=== PATIENT | female | born 1950 | race Caucasian/White ===

== ENCOUNTER 2019-05-04 00:46 | Day surgery (SDC) | payer MEDICARE, BC, SELFPAY ==
[2019-04-28 13:12] VITALS: BMI 26.4
[2019-05-04 08:21] VITALS: BP 126/104; PULSE 54; RESP 16; TEMP 36.6; O2SAT 97
[2019-05-04] MEDS: LACTATED RINGERS 1,000 ML 150 ML IV CONT (08:23)
--- NOTE | 2019-05-04 08:38 | P.CONGI_ITS ---
Assessment and Plan Additional Plan This is a 68-year-old white female patient seen in evaluation at the request of Dr. Marks. Patient presents for colonoscopy. Patient has had colon polyps in the past by previous endoscopy. At the present time patient states her weight appetite bowel movements are normal. She denies any blood in her stools. She denies any abdominal pain. Her bowel habits are regular. Family history is noncontributory. Past medical history noncontributory. Current medications include aspirin. Restasis eyedrops. Aspirin. She has an allergy to codeine. Physical exam reveals her to be alert. Vital signs stable. HEENT exam unremarkable. Lungs are clear to auscultation and percussion. Heart is without murmur or extra sounds. Abdominal exam bowel sounds are present soft nontender with no hepatosplenomegaly. Digital external rectal exam normal. Impression 1. Personal history of colon polyps. Plan is for surveillance colonoscopy at this time. Further recommendations after endoscopy. GI Consult Note Consult date/time: 05/04/19 08:38 HPI: Gabby Gong is a 68 year old female [facility] Family History Family History (Updated 06/27/16 @ 23:56 by DOCTOR UNKNOWN) Sibling Hypertension Family history of malignant neoplasm Father Family history of liver disease, Onset Age: 42 Patient's father is Mother Family history of malignant neoplasm of breast in first d egree relative, Onset Age: 69 Family history of malignant neoplasm of ovary Patient's mother is Social History Social History Smoking status: Never smoker Alcohol intake: current Meds Home Medications and Allergies Home Medications Medication Instructions Recorded Confirmed Type aspirin 81 mg PO DAILY 04/28/19 04/28/19 History calcium carbonate [Calcium 500] 500 mg PO DAILY 04/28/19 04/28/19 History cholecalciferol (vitamin D3) 10 mcg PO DAILY 04/28/19 04/28/19 History [Vitamin D3] cyclosporine [Restasis] 1 drp OPHTHALMIC (EYE) DAILY 04/28/19 04/28/19 History dorzolamide 1 drp OPHTHALMIC (EYE) DAILY 04/28/19 04/28/19 History latanoprost 1 drp OPHTHALMIC (EYE) DAILY 04/28/19 04/28/19 History omega 3-dyu-ovo-fish oil [Fish Oil] 1 cap PO DAILY 04/28/19 04/28/19 History Allergies Allergy/AdvReac Type Severity Reaction Status Date / Time codeine AdvReac Mild Nausea and Verified 04/28/19 13:20 Vomiting Vital Signs Vital Signs - 24 hr 05/04/19 08:21 Temperature 36.6 C Pulse Rate 54 L Respiratory Rate 16 Blood Pressure 126/104 H Pulse Oximetry 97
[2019-05-04 09:33] VITALS: BP 109/53; PULSE 60; RESP 16; O2SAT 100
[2019-05-04 09:43] VITALS: BP 131/61; PULSE 54; RESP 17; O2SAT 100
[2019-05-04 09:53] VITALS: BP 135/74; PULSE 53; RESP 18; O2SAT 100
== END 2019-05-04 10:19 | disposition home or self-care (01) ==
PROVIDERS: PCP Internal Medicine; Visit Provider Internal Medicine Gastroenterology
PROC: 0DJD8ZZ Inspection of Lower Intestinal Tract, Via Natural or Artificial Opening Endoscopic (ICD-10-PCS; CPT 45378; principal; 2019-05-04 09:00)
DX: Z12.11 Encounter for screening for malignant neoplasm of colon (principal); K63.5 Polyp of colon; K64.8 Other hemorrhoids; Z79.82 Long term (current) use of aspirin
CPT/HCPCS: 45385; 88305; J2704; J7120

== ENCOUNTER → 2020-01-25 17:42 | Outpatient (CLI) | payer MEDICARE, BC, SELFPAY ==
--- NOTE | ~2020-01-25 | MM_ITS ---
EXAMINATION: MM screening marika BI w raymundo HISTORY: Screening TECHNIQUE: Craniocaudal and mediolateral oblique 3-D tomosynthesis images were obtained and synthetic 2-D images were generated. CAD analysis was submitted and interpreted. COMPARISON: Comparison to multiple prior studies sequentially, with oldest reviewed study dated 10/02. BREAST PARENCHYMAL COMPOSITION: There are scattered areas of fibroglandular density. FINDINGS: There is no evidence of suspicious mass, calcification, or architectural distortion to sugg est malignancy in either breast. There has been no suspicious interval change. IMPRESSION: 1. No mammographic evidence of malignancy. 2. Recommend routine screening mammography in one year. BI-RADS Category 1: Negative Reviewed, dictated and finalized at location A. ICAL INSTRUMENT REPAIR SPECIALIST
== END ==
PROVIDERS: PCP Nurse Practitioner; Visit Provider Nurse Practitioner Obstetrics & Gynecology
DX: Z12.31 Encounter for screening mammogram for malignant neoplasm of breast (principal)
CPT/HCPCS: 77063; 77067

== ENCOUNTER → 2020-03-29 10:10 | Outpatient (CLI) | payer MEDICARE, BC, SELFPAY ==
--- NOTE | ~2020-03-29 | DEXA_ITS ---
Bone Density Report Name: Gabby Gong Age: 69 Sex: Female Ethnicity: White Date of : 1950 Indication: osteopenia; hysterectomy; postmenopausal Referring Provider: Sanjuanita Fisher Study: Bone densitometry was performed. Exam Date: March 29, 2020 Accession number: [id number] Bone Density: Region BMD T-score Z-score Classification AP Spine (L1-L4) 0.918 -1.2 0.8 Osteopenia Femoral Neck (Left) 0.737 -1.0 0.6 Normal Total Hip (Left) 1.009 0.6 1.9 Normal Femoral Neck (Right) 0.769 -0.7 0.9 Normal Total Hip (Right) 0.963 0.2 1.5 Normal Total Hip Mean 0.986 0.4 1.7 Normal World Health Organization criteria for BMD impression classify patients as: Normal (T-score at or above -1.0), Osteopenia (T-score between -1.0 and -2.5), or Osteoporosis (T-score at or below -2.5). 10-year Fracture Risk(1): Major Osteoporotic Fracture 8.4% Hip Fracture 0.7% Reported Risk Factors: [place] (), Neck BMD=0.737, BMI=24.4 (1) FRAX(R) Version 3.08. Fracture probability calculated for an untreated patient. Fracture probability may be lower if the patient has received treatment. Previous Exams: Region Exam Age BMD T-score BMD Change BMD Change Date g/cm2 vs Baseline vs Previous AP Spine(L1-L4) 03/29/2020 69 0.918 -1.2 -0.023* 0.007 01/08/2018 67 0.911 -1.2 -0.030* -0.008 01/10/2015 64 0.919 -1.2 -0.022 -0.028* 08/20/2011 60 0.947 -0.9 0.006 -0.014 11/24/2008 58 0.962 -0.8 0.021 0.021 05/13/2005 54 0.941 -1.0 Total Hip(Left) 03/29/2020 69 1.009 0.6 -0.031* -0.032* 01/08/2018 67 1.042 0.8 0.002 0.002 01/10/2015 64 1.040 0.8 0.000 -0.022 08/20/2011 60 1.062 1.0 0.022 0.078* 11/24/2008 58 0.984 0.3 -0.056* -0.056* 05/13/2005 54 1.040 0.8 Total Hip(Right) 03/29/2020 69 0.963 0.2 0.019 0.001 01/08/2018 67 0.963 0.2 0.018 -0.011 01/10/2015 64 0.974 0.3 0.029* 0.007 08/20/2011 60 0.967 0.2 0.022 0.010 11/24/2008 58 0.957 0.1 0.012 0.012 05/13/2005 54 0.945 0.0 *Denotes significance at 95% confidence level, LSC for AP Spine = 0.022 g/cm2, LSC for Total Hip = 0.027 g/cm2 Clinical Information Provided by Patient: Has used t
== END ==
PROVIDERS: PCP Internal Medicine; Visit Provider Nurse Practitioner
DX: Z78.0 Asymptomatic menopausal state (principal); M85.88 Other specified disorders of bone density and structure, other site
CPT/HCPCS: 77080

== ENCOUNTER 2020-11-01 09:44 | Outpatient (CLI) | payer MEDICARE, BC, SELFPAY ==
--- NOTE | ~2020-11-01 | XR_ITS ---
EXAMINATION: XR chest 2V DATE: 11/01/2020 11:13 INDICATION: Dyspnea. TECHNIQUE: Frontal and lateral views of the chest were obtained. COMPARISON: Chest 2 views 08/28/2005 FINDINGS: The chest demonstrates clear lungs without pneumonia, pleural effusion, or pneumothorax. Th e heart size is normal. IMPRESSION: 1. No acute cardiopulmonary disease. Reviewed, dictated and finalized at location A.
--- NOTE | 2020-11-01 10:09 | EST_ITS ---
Patient Info Name: Gabby Gong Age: 69 years : 1950 Gender: Female Ht: 65 in Wt: 152 lbs BSA: 1.79 m2 Technical Quality: Good Exam Date: 11/01/2020 10:37 AM Exam Location: [facility] Patient Status: Outpatient Admit Date: 11/01/2020 Staff Ordering Physician: Clarke Marks DO Freelance Programmer/App Developer: Sherly Rosenbaum RDCS Attending Provider: Clarke Marks DO Referring Physician: Kendrick WINSLOW; Exercise Technologist: Sherly Rosenbaum RDCS Exercise Physician: Fredrick Yu DO Exam Type: CA stress echo Study Info Indications R06.00 - Dyspnea, unspecified Treadmill exercise stress echocardiogram is performed. Summary 1. 1. Negative Charbel exercise stress test for ischemic ST changes by ECG criteria. 2. 2. Good functional capacity, achieving 9.8 METs of workload. 3. 3. Baseline hypertension with hypertensive response to exercise. 4. 4. Appropriate HR response to exercise. 5. 5. Appropriate HR recovery at 1 minute post exercise. 6. 6. Negative stress echocardiogram for ischemia by wall motion analysis. 7. 7. Patient informed of the above results. Stress Echo Findings Left Ventricle Appropriate increase in LV endocardial thickening with systole. Appropriate augmentation of contractility with systole. No wall motion abnormality. Left Ventricle Normal LV systolic function, no wall motion abnormality. Protocol: Charbel Stress ECG Details Stage: REST Duration (min): 8 min : 10 sec Speed (mph): 0.0 Grade (%): 0 HR (bpm): 51 SBP (mmHg): 146 DBP (mmHg): 74 METS: --- Stage: REST Duration (min): 18 min : 31 sec Speed (mph): 0.0 Grade (%): 0 HR (bpm): 80 SBP (mmHg): 146 DBP (mmHg): 74 METS: --- Stage: STAGE 1 Duration (min): 1 min : 0 sec Speed (mph): 1.7 Grade (%): 10 HR (bpm): 85 SBP (mmHg): 146 DBP (mmHg): 74 METS: --- Stage: STAGE 1 Duration (min): 2 min : 0 sec Speed (mph): 1.7 Grade (%): 10 HR (bpm): 95 SBP (mmHg): 146 DBP (mmHg): 74 METS: --- Stage: STAGE 1 Duration (min): 3 min : 0 sec Speed (mph): 1.7 Grade (%): 10 HR (bpm): 98 SBP (mmHg): 204 DBP (mmHg): 77 METS: --- Stage: STAGE 2 Duration (min): 1 min : 0 sec Speed (mph): 2.5 Grade (%): 12 HR (bpm): 110 SBP (mmHg): 204 DBP (mmHg): 77 METS: --- Stage: STAGE 2 Duration (min): 2 min : 0 sec Speed (mph): 2.5 Grade (%): 12 HR (bpm): 120 SBP (mmHg): 212 DBP (mmHg): 85 METS: --- Stage: STAGE 2 Duration (min): 3 min : 0 sec Speed (mph): 2.5 Grade (%): 12 HR (bpm): 122 SBP (mmHg): 212 DBP (mmHg): 85 METS: --- Stage: STAGE 3 Duration (min): 1 min : 0 sec Speed (mph): 3.4 Grade (%): 14 HR (bpm): 137 SBP (mmHg): 218 DBP (mmHg): 98 METS: --- Stage: STAGE 3 Duration (min): 1 min : 35 sec Speed (mph): 0.0 Grade (%): 0 HR (bpm): 144 SBP (mmHg): 218 DBP (mmHg): 98 METS: ---
== END 2020-11-01 09:45 | disposition home or self-care (01) ==
PROVIDERS: PCP Internal Medicine; Visit Provider Internal Medicine
DX: R06.00 Dyspnea, unspecified (principal)
CPT/HCPCS: 71046; 93351

== ENCOUNTER → 2021-04-01 15:46 | Outpatient (CLI) | payer MEDICARE, BC, SELFPAY ==
--- NOTE | ~2021-04-01 | MM_ITS ---
EXAMINATION: MM screening marika BI w raymundo HISTORY: Screening TECHNIQUE: Craniocaudal and mediolateral oblique 3-D tomosynthesis images were obtained and synthetic 2-D images were generated. CAD analysis was submitted and interpreted. COMPARISON: Comparison to multiple prior studies sequentially, with oldest reviewed study dated 10/07. BREAST PARENCHYMAL COMPOSITION: There are scattered areas of fibroglandular density. FINDINGS: There is no evidence of suspicious mass, calcification, or architectural distortion to sugg est malignancy in either breast. There has been no suspicious interval change. IMPRESSION: 1. No mammographic evidence of malignancy. 2. Recommend routine screening mammography in one year. BI-RADS Category 1: Negative Reviewed, dictated and finalized at location A. K MECHANIC APPRENTICE
== END ==
PROVIDERS: PCP Internal Medicine; Visit Provider Nurse Practitioner Obstetrics & Gynecology
DX: Z12.31 Encounter for screening mammogram for malignant neoplasm of breast (principal)
CPT/HCPCS: 77063; 77067

== ENCOUNTER → 2022-06-12 09:49 | Outpatient (CLI) | payer MEDICARE, BC, SELFPAY ==
--- NOTE | ~2022-06-12 | MM_ITS ---
EXAMINATION: MM screening marika BI w raymundo HISTORY: Screening TECHNIQUE: Craniocaudal and mediolateral oblique 3-D tomosynthesis images were obtained and synthetic 2-D images were generated. CAD analysis was submitted and interpreted. COMPARISON: Comparison to multiple prior studies sequentially, with oldest reviewed study dated 10/07. BREAST PARENCHYMAL COMPOSITION: There are scattered areas of fibroglandular density. FINDINGS: There is no evidence of suspicious mass, calcification, or architectural distortion to sugg est malignancy in either breast. There has been no suspicious interval change. IMPRESSION: 1. No mammographic evidence of malignancy. 2. Recommend routine screening mammography in one year. BI-RADS Category 1: Negative Reviewed, dictated and finalized at location A.
--- NOTE | ~2022-06-12 | DEXA_ITS ---
Bone Density Report Name: TORI PHILIP Age: 71 Sex: Female Ethnicity: White Date of : 1950 Indication: osteopenia; hysterectomy; postmenopausal Referring Provider: RENATO LOBATO Study: Bone densitometry was performed. Exam Date: June 12, 2022 Accession number: [id number] Bone Density: Region BMD T-score Z-score Classification AP Spine (L1-L4) 0.930 -1.1 1.0 Osteopenia Femoral Neck (Left) 0.787 -0.6 1.2 Normal Total Hip (Left) 0.974 0.3 1.7 Normal Femoral Neck (Right) 0.715 -1.2 0.6 Osteopenia Total Hip (Right) 0.956 0.1 1.6 Normal Total Hip Mean 0.965 0.2 1.7 Normal World Health Organization criteria for BMD impression classify patients as: Normal (T-score at or above -1.0), Osteopenia (T-score between -1.0 and -2.5), or Osteoporosis (T-score at or below -2.5). 10-year Fracture Risk(1): Major Osteoporotic Fracture 9.3% Hip Fracture 1.1% Reported Risk Factors: [place] (), Neck BMD=0.715, BMI=25.2 (1) FRAX(R) Version 3.08. Fracture probability calculated for an untreated patient. Fracture probability may be lower if the patient has received treatment. Previous Exams: Region Exam Age BMD T-score BMD Change BMD Change Date g/cm2 vs Baseline vs Previous AP Spine(L1-L4) 06/12/2022 71 0.930 -1.1 -0.011 0.012 03/29/2020 69 0.918 -1.2 -0.023* 0.007 01/08/2018 67 0.911 -1.2 -0.030* -0.008 01/10/2015 64 0.919 -1.2 -0.022 -0.028* 08/20/2011 60 0.947 -0.9 0.006 -0.014 11/24/2008 58 0.962 -0.8 0.021 0.021 05/13/2005 54 0.941 -1.0 Total Hip(Left) 06/12/2022 71 0.974 0.3 -0.066* -0.036* 03/29/2020 69 1.009 0.6 -0.031* -0.032* 01/08/2018 67 1.042 0.8 0.002 0.002 01/10/2015 64 1.040 0.8 0.000 -0.022 08/20/2011 60 1.062 1.0 0.022 0.078* 11/24/2008 58 0.984 0.3 -0.056* -0.056* 05/13/2005 54 1.040 0.8 Total Hip(Right) 06/12/2022 71 0.956 0.1 0.012 -0.007 03/29/2020 69 0.963 0.2 0.019 0.001 01/08/2018 67 0.963 0.2 0.018 -0.011 01/10/2015 64 0.974 0.3 0.029* 0.007 08/20/2011 60 0.967 0.2 0.022 0.010 11/24/2008 58 0.957 0.1 0.012 0.012 05/13/2005 54 0.945 0.0 *Denotes significance at 95% confidence l
== END ==
PROVIDERS: PCP Internal Medicine; Visit Provider Internal Medicine
DX: Z12.31 Encounter for screening mammogram for malignant neoplasm of breast (principal); M85.88 Other specified disorders of bone density and structure, other site; M85.852 Other specified disorders of bone density and structure, left thigh
CPT/HCPCS: 77063; 77067; 77080

== ENCOUNTER 2023-07-24 13:21 | Outpatient (CLI) | payer MEDICARE, BC, SELFPAY ==
--- NOTE | ~2023-07-24 | MM_ITS ---
EXAMINATION: MM screening marika BI w raymundo HISTORY: Screening mammogram TECHNIQUE: Craniocaudal and mediolateral oblique 3-D tomosynthesis images were obtained and synthetic 2-D images were generated. CAD analysis was submitted and interpreted. COMPARISON: 06/12/2022, 04/01/2021 bilateral screening mammogram examinations BREAST PARENCHYMAL COMPOSITION: There are scattered areas of fibroglandular density. FINDINGS: There is no evidence of suspicious mass, calcification, or architectural distortion to sugg est malignancy in either breast. There has been no suspicious interval change. IMPRESSION: 1. No mammographic evidence of malignancy. 2. Recommend routine screening mammography in one year. BI-RADS Category 1: Negative Reviewed, dictated and finalized at location A.
== END 2023-07-24 13:22 ==
LOC: MICIMG 13:22
PROVIDERS: PCP Nurse Practitioner Family; Visit Provider Nurse Practitioner Family
DX: Z12.31 Encounter for screening mammogram for malignant neoplasm of breast (principal)
CPT/HCPCS: 77063; 77067

== ENCOUNTER 2024-10-04 13:30 | Outpatient (RCR) | payer MEDICARE, BC, SELFPAY ==
--- NOTE | 2024-08-26 09:56 | OPREHPOC ---
Outpatient Therapy Plan of Care This is a Multidisciplinary Plan of Care that may contain components documented by all disciplines (PT, OT, and ST.) PT Problem 1 PT Problem #1 Knowledge Deficit PT Goal 1 Goal / Goal Update 1. Patient will perform independent HEP 2. Patient will verbalize urge suppression techniques Target Visit 2 PT Problem 2 PT Problem #2 Impaired Strength PT Goal 1 Goal / Goal Update 1. Improve pelvic floor strength to 5/5 to reduce incontinence 2. Improve pelvic floor endurance to 10 seconds to reduce incontinence 3. Patient able to perform 5 quick flicks as urge suppression technique Target Visit 4 PT Problem 3 PT Problem #3 Impaired Functional ADLs PT Goal 1 Goal / Goal Update 1. Patient will void no more than 1 time at night 2. Patient will void no more than 1 time before going to bed 3. Patient will void no more than 8 times total during her waking hours 4. Patient will report ability to hold urge at least 30 minutes Target Visit 4
--- NOTE | 2024-08-26 09:56 | PTOPEVAL1 ---
Assessment and note entered by Lynsey Santana DPT Evaluation Information Assessment Status Evaluation Diagnosis r35.0 ICD-10 Condition Codes (PT) Weakness R53.1,Urge incontinence N39.41 Subjective Information Pt reports nocturia. Typically voiding 2 times at night. If she does not fall asleep right away she will need to void again within minutes and this can happen until she falls asleep. Voiding 6-7 times a day. Urge incontinence (very small volume) occurs less than monthly only if holding too long . Denies pain with urination. Can hold urge to void 5-10 minutes. BM usually once a day, no pain. Overall denies pelvic pain, some discomfort due to dryness from menopause. Pt has never been . Complete hysterectomy. No b/b history. Patient goal: get rid of voiding at night and right before bed Returns for wellness exam in 6 months. Reported Pain Level Pain Score 0: Self Report Assessment PT Clinical Summary The patient is presenting to skilled therapy with a history of increased urinary frequency, urgency, and infrequent urge incontinence. She presents with decreased hip and abdominal strength, as well as decreased pelvic floor strength and endurance. She will highly benefit from therapy to address strength as well as for education and training in urge suppression techniques to reduce frequency, urgency, and incontinence to return to full function. Plan of Care Interventions Manual Therapy,Neuro Re-education,Patient/ Caregiver Education,Therapeutic Activities, Therapeutic Exercise PT Services Indicated Yes Treatment Frequency and 1 visit every other week x 4 visits Duration These treatments will address the objective and functional deficits as defined above. The patient will be advanced safely and appropriately in order for the patient to progress towards his/her prior level of function. Additional exercises will be introduced and as well as a comprehensive home exercise program upon discharge, if needed, ?to ensure carryover of functional gains achieved in the clinic. This treatment plan has been reviewed and agreement upon by the patient.
--- NOTE | 2024-10-12 14:43 | PTOPDC ---
Assessment and note entered by Lynsey Santana DPT Evaluation Information Assessment Status Discharge - Pt Not Present Diagnosis r35.0 ICD-10 Condition Codes (PT) Weakness R53.1,Urge incontinence N39.41 Subjective Information - Assessment PT Clinical Summary Patient is self discharging at this time as she reports her symptoms have improved. Her case will be discharged this date. Plan of Care PT Services Indicated No
== END 2024-10-12 16:40 | disposition home or self-care (01) ==
LOC: ANHPT 13:30
PROVIDERS: PCP Nurse Practitioner Family; Visit Provider Nurse Practitioner
DX: R35.0 Frequency of micturition (principal)
CPT/HCPCS: 97110; 97112; 97161; 97530

== ENCOUNTER 2024-10-21 13:18 | Outpatient (CLI) | payer MEDICARE, BC, SELFPAY ==
--- OUTSIDE RECORDS SUMMARY | 2024-10-21 13:21 | XMS_ITS | Referral Summary ---
Author Organization [facility] Address [address] [place] [address] Care Team Providers Care Gear Cutting Machine Set Up Operator Name Role Phone Salbador Haynes MD Primary Care Provider [phone] Encounters Date Type Department Care Team Description 09/21/2024 11:00 AM CDT Office Visit [facility] Cardiology [address] [place] [address] Torin Doshi MD Chest pain, unspecified type (Primary Dx) from Last 3 Months Allergies Active Allergy Reactions Criticality Noted Date Comments Codeine Nausea & Vomiting Low 09/21/2024 Medications latanoprost (XALATAN) 0.005 % ophthalmic solution 1 drop nightly 5 Active cycloSPORINE (RESTASIS) 0.05 % ophthalmic emulsion INSTILL ONE DROP INTO BOTH EYES TWICE A DAY 5 Active dorzolamide (TRUSOPT) 2 % ophthalmic solution INSTILL ONE DROP INTO THE RIGHT EYE TWICE A DAY 5 Active perfluorohexylo ctane, PF, (Miebo, PF,) 100 % drops Administer into affected eye(s) Active calcium carbonate (CALCIUM 600 ORAL) Take by mouth daily Active omega-3 fatty acids-fish oil 300-1,000 mg capsule Take 2 capsules (2 g total) by mouth daily Active eszopiclone (LUNESTA) 2 mg tabletIndicatio ns:Insomnia Take 1 tablet (2 mg total) by mouth nightly as needed for sleep Active lisinopriL (PRINIVIL,ZESTR IL) 10 mg tablet Take 1 tablet (10 mg total) by mouth daily 30 tablet 11 07/2210/12/19 26 Active Active Problems No known active problems Social History Tobacco Use Types Packs/Day Years Used Date Smoking Tobacco: Former Cigarettes 1 997 - 1969 Smokeless Tobacco: Never Tobacco Cessation:Counseling Given: Not Answered Comments Unknown Sex and Gender Information Value Date Recorded Sex Assigned at Not on file 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 Gender Identity Not on file Sexual Orientation Not on file Last Filed Vital Signs Vital Sign Reading Time Taken Comments Blood Pressure 132/68 09/21/2024 11:01 AM CDT Pulse 55 09/21/2024 11:01 AM CDT Temperature - - Respiratory Rate - - Oxygen Saturation 98% 09/21/2024 11:01 AM CDT Inhaled Oxygen Concentration - - Weight 68 kg (150 lb) 09/21/2024 11:01 AM CDT Height 165.1 cm (5' 5) 09/21/2024 11:01 AM CDT Body Mass Index 24.96 09/21/2024 11:01 AM CDT Plan of Treatment Not on file Insurance MEDICARE [facility] Care Teams Gear Cutting Machine Set Up Operator Relationship Specialty Start Date End Date Salbador Haynes MD [address] [place] [address] PCP - General Family Practice 07/08/24
--- OUTSIDE RECORDS SUMMARY | 2024-10-21 13:21 | XMS_ITS | Clinical Summary ---
Author Organization [facility] Address [address] [place] [address] Care Team Providers Care Fiberglass Boat Builder Name Role Phone Unavailable Primary Care Provider Unavailabl e Source Comments [facility],non-owned Affiliates and Associated Physician Practices is amultiple site organization consisting of ambulatory clinics and hospital sitesin [place], [place], [place] and [place]. This disclosure is being madepursuant to the Care Everywhere program and may not contain all information available regarding this patient. 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 Gender Identity Not on file Sexual Orientation Not on file Plan of Treatment Health Maintenance Due Date Last Done Comments BONE DENSITY TESTING 1950 COLOGUARD (AGES 45-75) - COL ON CA SCREENING 1950 COLON MONITORING 1950 COLONOSCOPY - COLON CA SCREENING 1950 CT COLONOGRAPHY - COLON CA SCREENING 1950 Colorectal Cancer Screening 1950 FIT - COLON CA SCREENING 1950 FLEX SIG - COLON CA SCREENING 1950 LIPID TESTING 1950 MAMMOGRAM 1950 MEDICARE AWV 12 MONTHS 1950 HEPATITIS C SCREENING 11/07/1970 DTAP/TDAP/TD VACCINES (1 - Tdap) 11/12/1971 PNEUMOCOCCAL VACCINE 50+ (1 of 1 - PCV) 2002 ZOSTER VACCINE (1 of 2) 2002 COVID-19 VACCINE ( - 2023-2 5 season) 2023 DEPRESSION SCREENING 03/23/2024 INFLUENZA VACCINE (#1) 2024 Respiratory Syncytial Virus (RSV) Vaccine Pt: or over 60 yrs (1 - 1-dose 75+ series) 11/12/2027 HEPATITIS B VACCINE Aged Out No longe r eligible based on patient's age to complete this topic HIB VACCINE Aged Out No longer eligi ble based on patient's age to complete this topic HPV VACCINE Aged Out No longer eligi ble based on patient's age to complete this topic MENINGOCOCCAL (Group B) VACC INE SHARED DECISION-MAKING Aged Out No longer eligibl e based on patient's age to complete this topic MENINGOCOCCAL GROUPS A/C/Y/W VACCINE Aged Out No longer eligible b ased on patient's age to complete [place] [address] MEDICARE [facility]
--- OUTSIDE RECORDS SUMMARY | 2024-10-21 13:21 | XMS_ITS | Encounter Summary ---
Author Organization [facility] Address [address] [place] [address] Care Team Providers Care Trust Vault Custodian Name Role Phone Unavailable Primary Care Provider Unavailabl e Encounter Details Date Type Department Care Team (Late st Contact Info) Description 12/23/2018 Lab Requisition [facility] [address] [place] [id number] Jaky Mora MD [address] [facility] [address] [place] [address] Social History Tobacco Use Types Packs/Day Years Used Date Smoking Tobacco: Never Assessed Comments Unknown Sex and Gender Information Value Date Recorded Sex Assigned at Not on file 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 Gender Identity Not on file Sexual Orientation Not on file documented as of this encounter Plan of Treatment Not on file documented as of this encounter Procedures Procedure Name Priority Date/Time Associated Diagnosis Comments DERMATOPATHOLOGY Routine 12/22/2018 12:0 0 AM CDT documented in this encounter Results * DERMATOPATHOLOGY (12/22/2018 12:00 AM CDT) Case Report Dermatopathology Report Case: [id number] Authorizing Provider: Jaky Mora MD Collected: 12/22/2018 12:00 AM Ordering Location: [facility] Received: 12/23/2018 08:11 AM Pathologist: Juan Huynh MD Specimen: Skin, left forearm 9 2:38 PM CDT DERMATOPATHOLOGY LABORATORY Final Diagnosis Specimen A. SKIN, left forearm: SUPERFICIAL AND DEEP PERIVASCULAR LYMPHOCYTIC INFILTRATE WITH EOSINOPHILS (T63.484A) (see microscopic description and comment) 9 2:38 PM CDT DERMATOPATHOLOGY LABORATORY at 1438 CDT Clinical History ACD vs CTD vs PSO vs tinea vs fixed drug. [place] edematous scaly plaques AL forearm and neck. 2:38 PM CDT DERMATOPATHOLOGY LABORATORY Gross Description Specimen A: Received is one formalin filled container labeled with the patient's name and designated left forearm. The specimen consists of a punch measuring [id number], bisected. Jar 0. 2:38 PM CDT DERMATOPATHOLOGY LABORATORY Microscopic Description Specimen A. SKIN, left forearm: There is a superficial and deep, wedge-shaped, perivascular and interstitial infiltrate of lymphocytes with eosinophils. The epidermis is focally necrotic and covered with a scale-crust, with underlying keratinocyte dysmaturation. Grocott's methenamine silver (GMS) stain fails to highlight fungal elements in the available sections. Additional deeper sections were obtained and reviewed. COMMENT: The histologic differential diagnosis includes an arthropod bite reaction, a dermal contact dermatitis, and a drug reaction. 2:38 PM CDT DERMATOPATHOLOGY LABORATORY Disclaimer An external and internal positive and negative controls are appropriate for the histochemical, immunohistochemical and immunofluorescence stain(s) in this case (if any), except where stated explicitly. The performance characteristics of the stain(s) cited in this report were developed and its performance characteristic determined by the Dermatopathology Laboratory at [facility], directed by Dr. Sarah Huynh. These tests need not be, and therefore are not, approved by the [place] Food and Drug Administration. The tests are used for clinical purposes. Billing Codes Specimen Charges Stain Charges 23827 1 36485 1 2:38 PM CDT DERMATOPATHOLOGY LABORATORY Embedded Images 2:38 PM CDT DERMATOPATHOLOGY LABORATORY Pathology/Cytolog y TISSUE SPECIMEN FROM SKIN / Unknown 12/22/2018 12/23/2018 8:11 AM CDT us Jaky Mora MD LAB - PATHOLOGY/CYTOLOGY ORD ERABLES Final Result DERMATOPATHOLOGY LABORATORY [facility] - Department of Dermatology [address] [place] [address], [address] [place] [address], [facility] [phone] documented in this encounter Visit Diagnoses Not on filedocumented in this encounter
--- OUTSIDE RECORDS SUMMARY | 2024-10-21 13:21 | XMS_ITS | Clinical Summary ---
Author Organization [facility] Address [address] [place] [address] Care Team Providers Care Automotive Light Mechanic Name Role Phone Salbador Haynes MD Primary Care Provider [phone] Allergies Active Allergy Reactions Criticality Noted Date [...] total) by mouth daily 30 tablet 11 5 10/12/19 26 Active Active Problems No known active problems Encounters Date Type Department Care Team Description 09/21/2024 11:00 AM CDT Office Visit [facility] Medical [facility] Cardiology [address] [place] [address] Torin Doshi MD Chest pain, unspecified type (Primary Dx) from Last 3 Months Family History Medical History Relation Name Comments enlarged heart Mother Other Sister Relation Name Status Comments Mother Sister Social History Tobacco Use Types Packs/Day Years Used Date Smoking Tobacco: Former Cigarettes 1 - 1969 Smokeless Tobacco: Never Tobacco Cessation:Counseling Given: Not Answered Comments Unknown Sex and Gender Information Value Date Recorded Sex Assigned at Not on file 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 Gender Identity Not on file Sexual Orientation Not on file Obstetrics History Last Filed Vital Signs Vital Sign Reading [...] 09/21/2024 11:01 AM CDT Plan of Treatment Health Maintenance Due Date Last Done Comments Breast Cancer Screening-Mammogram 1950 Colon Cancer Screening-Colonoscopy 1950 Depression Screening 1950 Fall Risk Assessment 1950 Hepatitis C Screening 1950 Osteoporosis Screening-Bone Density Scan 1950 DTaP/Tdap/Td Vaccine (1 - Tdap) 11/12/1963 Hepatitis B Screening 1970 Pneumococcal vaccine 65+ (1 of 1 - PCV) 2002 Zoster Vaccine (1 of 2) 2002 Well Visit 65+ 2017 Influenza Vaccine (#1) 2024 Insurance MEDICARE [facility] Care Teams Automotive Light Mechanic Relationship Specialty Start Date End Date Salbador Haynes MD [address] [place] [address] PCP - General Family Practice 07/08/24
--- OUTSIDE RECORDS SUMMARY | 2024-10-21 13:21 | XMS_ITS | Continuity of Care Document ---
Author Organization [facility] Address [address] [place] [address] Phone Care Team Providers Care Rafter Cutting Machine Operator Name Role Phone Alfred Gongora Unavailable Unavailable [...] Providers Copied on Encounter [place], [facility] [place] [address], [place], [place], [id number], [place] tel:[phone] [facility] No Information 3-201 0 Fransisca Simon. [address], [place], [address], [place]. tel:[phone] Office/outpat ient Visit, [facility] [address], [place], [place], [id number], [place] tel:[phone] [facility] No Information Oct-2 8-200 9 Krishnasamy Chris. [address], [place], [place], [facility] [place]. tel:[phone] Referring Provider: Chris ndiaye, [address], [place], [address]. tel:[phone] [facility], [address] [place] [address] [address], [place], [place], [address], [place] tel:[phone] [facility] No Information Apr-1 3-200 9 Fransisca Simon. [address] [place], [place] [address] , [address], [place], [facility] [place]. tel:[phone] Referring Provider: Alfred Penaloza, [address] [place], [place] [address], [place], [facility] [place]. tel:[phone] [facility], [address] [place] [address] [address], [place], [place], [address], [place] tel:[phone] [facility] No Information Mar-2 3-200 9 Fransisca Simon. [address] [place], [place] [address] [place] , [address], [place], [facility] [place]. tel:[phone] Office/outpat ient Visit, [facility], [address] [place] [address] [address], [place], [place], [address], [place] tel:[phone] [facility] No Information Sep-2 4-200 8 Krishnasamy Chris. [address] [facility] [address] [address], [place], [facility] [place]. tel:[phone] Office/outpat ient Visit, [facility], [address] [place] [address] [address], [place], [place], [address], [place] tel:[phone] [facility] No Information Sep-0 4-200 8 Krishnasamy Chris. [address] [facility] [address], [place], [facility] [place]. tel:[phone] Office/outpat ient Visit, [facility], [address], [place], [place], [address], [place] tel:[phone] [facility] No Information Aug-0 7-200 8 Krishnasamy Chris. [address], [place], [facility] [place], . tel:[phone] [facility]pat [facility], [address], [place], [place], [address], [place] tel:[phone] [facility] No Information Aug-0 1-200 8 Hodge OD Patricio. [address], [place], [facility] [place], . tel:[phone] [facility], [address], [place], [place], [id number], tel:[phone] [facility] No Information Sep-2 5-200 8 Hodge OD Patricio. [address], [place], [facility] [place], . tel:[phone] [facility], [address], [place], [place], [address], tel:[phone] [facility] No Information Rip-1 9-200 8 Doisy Edalejandro. [address], [place], [facility] [place], [place]. tel:[phone] [facility], [address], [place], [place], [address], [place] tel:[phone] [facility] No Information July-2 3-200 7 Doisy Edalejandro. [address], [place], [facility] [place], . tel:[phone] Family History Family Member Type Diagnosis Age At Onset No Information Payers Payer name Insurance type Covered green party ID Authoriza tion(s) No Information Social [...]
--- OUTSIDE RECORDS SUMMARY | 2024-10-21 13:21 | XMS_ITS | Continuity of Care Document ---
Author Organization [facility] Address [address] [facility] [address] [place] [address] Phone Care Team Providers Care Sole Dyer Name Role Phone Breana ORTA, [facility] Unavailable Unavaila ble Allergies, Adverse Reactions, Alerts [...] - Active Procedures Procedure Date OFFICE/OUTPATIENT VISIT, [facility] Advance Directives Directive Yes / No Effective Date File Name No Information Encounters Encounter Description Practice Location Reason(s) For Visit Diagnoses Date Provider Providers Copied on Encounter OFFICE/OUTPA TIENT VISIT, [facility], [address] [facility] [address], [place], [place], [id number], [place] tel:[phone] [facility] pain (chief complaint) Status post LASIK surgery of both eyesPresence of pseudophakiaBi lateral keratoconjunct ivitis sicca, not specified as Sjogren'sBleph aritis of both upper and lower eyelidPrimary open angle glaucoma (POAG) of both eyes, mild stage Oct- 201 9 Breana Hurdhil. [address], [address], [place], [place], [id number], [place]. tel:[phone] Referring Provider: Chris Chairez senthil, [address], [place], [address] . tel:[phone] Family History Family Member Type Diagnosis Age At Onset No Information Payers Payer name Insurance type Covered republican ID Authoriza tion(s) [place] [id number] [facility] [id number] Social History Type Description Quantity Date Captured [...] sent her to a cornea specialist at [facility] her recommended Fish Oil and warm compresses [...] sent her to a cornea specialist at [facility] her recommended Fish Oil and warm compresses and that didn't help. She thinks she's had [place] punctal plugs but thinks they fell out [...]
--- OUTSIDE RECORDS SUMMARY | 2024-10-21 13:21 | XMS_ITS | Continuity of Care Document ---
Author Organization [facility] Address [address] [address] Phone Care Team Providers Care Enterprise Architect Manager Name Role Phone Heriberto ORTA, Becca Unavailable [...] [facility], [address] [address], [place], [place], [id number], tel:[phone] [facility] No Information 0 Heriberto Hudson. [address] [place] [address] , [place], [place], [id number] , [place]. tel: [phone] Referring Provider: Jaky Mora, [address], [place], [address]. tel:[phone] Est (Level 4) OFFICE/OUTPA TIENT VISIT [facility], [address] [place] [address], [id number], [place] tel:[phone] [place] - AAFAC rash (chief complaint) Contact dermatitisPruritu s 0 Tri RECYCLING OPERATIONS MANAGER Lorenzo. [address] [facility] [address], [place], [address], [place]. tel: [phone] Referring Provider: Jaky Mora, [address], [place], [address]. tel:[phone] Est (Level 2) OFFICE/OUTPA TIENT VISIT [facility], [address] [place] [address], [id number], [place] tel:[phone] [place] - AAFAC rash (chief complaint) Contact dermatitis 0 Tri RECYCLING OPERATIONS MANAGER Lorenzo. [address], [facility] [address], [place], [address], [place]. tel: [phone] Referring Provider: Jaky Mora, [address], [place], [address]. tel:[phone] Est (Level 3) OFFICE/OUTPA TIENT VISIT [facility], [address] [place] [address], [id number], [place] tel:[phone] [place] - AAFAC rash (chief complaint) Contact dermatitisAllergi c contact dermatitis due to metals 0 Arsenio Pineda. [address], [place], [address], [place]. tel: [phone] Referring Provider: Jaky Mora, [address], [place], [address]. tel:[phone] New (Level 3) OFFICE/OUTPA TIENT VISIT [facility], [address] [facility] [address], [place], [place], [id number], [place] tel:[phone] [facility] pruritus (chief complaint) Dermatitis, unspecifiedPrurit usAllergic contact dermatitis due to metals 0 Arsenio Pineda. [address], [place], [address], [place]. tel:[phone] Referring Provider: Jaky Mora, [address], [place], [address]. tel:[phone] Family History Family Member Type Diagnosis Age At Onset No Information Payers Payer name Insurance type Covered republican ID Authoriza tialin(s) Medicare [facility] [id number] [facility] [id number] Social History Type Description Quantity Date Captured [...] labs on 10/06/19 which showed normal CBC/diff, HyA=444 (high) and respiratory allergen panel positive to cockroach (0.85), dust mite P (0.63), dust mite F (0.61), maple (0.11), cedar (0.56), cat (0.22) and Burkinan thistle (0.19). Food allergen panel was not [...] excisions on hand/wristsFHx: no atopySHx: Lives in [place] with . House built 1968, has lived there 41 years. No pets. Central A/C, gas heating. Carpet in [place]. No basement, no mold. Quit smoking 1998, previous 1.5 ppd x 20 years, occ. EtOH. Works 3 days/week at [employer]. rash LV: 10/31/[address] Cesar for [...] labs on 10/06/19 which showed normal CBC/diff, ErT=269 (high) and respiratory allergen panel positive to cockroach (0.85), dust mite P (0.63), dust mite F (0.61), maple (0.11), cedar (0.56), cat (0.22) and Burkinan thistle (0.19). Food allergen panel was not [...] excisions on hand/wristsFHx: no atopySHx: Lives in [place] with . House built 1968, has lived there 41 years. No pets. Central A/C, gas heating. Carpet in [place]. No basement, no mold. Quit smoking 1998, previous 1.5 ppd x 20 years, occ. EtOH. Works 3 days/week at [employer]. rash LV: 10/19/19I had the pleasure of [...] labs on 10/06/19 which showed normal CBC/diff, YcW=747 (high) and respiratory allergen panel positive to cockroach (0.85), dust mite P (0.63), dust mite F (0.61), maple (0.11), cedar (0.56), cat (0.22) and Burkinan thistle (0.19). Food allergen panel was not [...] excisions on hand/wristsFHx: no atopySHx: Lives in [place] with . House built 1968, has lived there 41 years. No pets. Central A/C, gas heating. Carpet in [place]. No basement, no mold. Quit smoking 1998, previous 1.5 ppd x 20 years, occ. EtOH. Works 3 days/week at [employer]. pruritus I had the pleasu re of [...] labs on 10/06/19 which showed normal CBC/diff, UhM=401 (high) and respiratory allergen panel positive to cockroach (0.85), dust mite P (0.63), dust mite F (0.61), maple (0.11), cedar (0.56), cat (0.22) and Burkinan thistle (0.19). Food allergen panel was not done. She is clinically sensitive to cats with nasal and ocular symptoms but denies seasonal allergy issues. She denies a history of environmental allergies, asthma, eczema, food allergies, medication allergies, urticaria/angioedema, recurrent infections, latex allergy or stinging insect hypersensitivity.PMHx: right eye glaucoma, asymptomatic TIAPSHx: hysterectomy, ganglion cyst excisions on hand/wristsFHx: no atopySHx: Lives in [place] with . House built 1968, has lived there 41 years. No pets. Central A/C, gas heating. Carpet in [place]. No basement, no mold. Quit smoking 1998, previous 1.5 ppd x 20 years, occ. EtOH. Works 3 days/week at [employer].REcent LFTs normal through PCP, CBC/diff normal through [facility] Functional Status Date Functional Assessmen t No Information Instructions Date Instruction Additional Infor mation No Information Assessments Type Assessment Date No Information Patient Care Teams Name Effective Dates (start - stop) Status Members No Information
== END 2024-10-21 13:19 | disposition home or self-care (01) ==
LOC: ANHAUDIO 13:19
PROVIDERS: PCP Nurse Practitioner Family; Visit Provider Nurse Practitioner Family
DX: H90.3 Sensorineural hearing loss, bilateral (principal)
CPT/HCPCS: 92557; 92567

== ENCOUNTER 2024-11-14 11:07 | Outpatient (CLI) | payer MEDICARE, BC, SELFPAY ==
--- OUTSIDE RECORDS SUMMARY | 2009-09-12 03:00 | XMS_ITS | Continuity of Care Document ---
Author Organization [facility] Address [address] [facility] [address] [place] [address] Phone Care Team Providers Care Shot Dropper Name Role Phone Alfred Gongora Unavailable Unavailable Procedures Procedure Date Office/outpatient Visit, Est Office/outpatient Visit, Est Refraction Fundus Photography W/ Report Visual Field Examination(s) Eye Exam Established Pt Office/outpatient Visit, Est Office/outpatient Visit, Est Office/outpatient Visit, Est Office/outpatient Visit, Est Eye Exam Established Pt Eye Exam & Treatment Refraction Eye Exam & Treatment Refraction Advance Directives Directive Yes / No Effective Date File Name No Information Encounters Encounter Description Practice Location Reason(s) For Visit Diagnoses Date Provider Providers Copied on Encounter Office/outpat ient Visit, [facility] [place], [address], [place], [place], [id number], [place] tel:[phone] [facility] No Information Aug- 3-201 0 Fransisca Simon. [address] , [address], [place], [address], [place]. tel:[phone] Office/outpat ient Visit, [facility] [place], [address], [place], [place], [id number], [place] tel:[phone] [facility] No Information Oct-2 8-200 9 Krishnasamy Chris. [address], [place], [place], [facility], [place]. tel:[phone] Referring Provider: Chris ndiaye, [address], [place], [address]. tel:[phone] [facility], [address] [place] [address] [address], [place], [place], [id number], [place] tel:[phone] [facility] No Information Apr-1 3-200 9 Fransisca Simon. [address] [place], [place] [address] , [address], [place], [place], [facility], [place]. tel:[phone] Referring Provider: Alfred Penaloza, [address] [place], [place] [address], [place], [place], [facility]. tel:[phone] [facility], [address] [place] [address] [address], [place], [place], [id number], [place] tel:[phone] [facility] No Information Mar-2 3-200 9 Fransisca Simon. [address] [place], [place] [address] [place] , [address], [place], [place], [facility], [place]. tel:[phone] Office/outpat ient Visit, [facility], [address] [place] [address] [address], [place], [place], [id number], [place] tel:[phone] [facility] No Information Sep-2 4-200 8 Krishnasamy Chris. [address] [facility] [address], [place], [facility], [place]. tel:[phone] Office/outpat ient Visit, [facility], [address] [place] [address] [address], [place], [place], [address], [place] tel:[phone] [facility] No Information Sep-0 4-200 8 Krishnasamy Chris. [address] [facility] [address], [place], [place], [facility], [place]. tel:[phone] Office/outpat ient Visit, [facility], [address], [place], [place], [address], [place] tel:[phone] [facility] No Information Aug-0 7-200 8 Krishnasamy Chris. [address], [place], [place], [facility], . tel:[phone] [facility]pat ient [facility], [facility], [address], [place], [place], [id number], [place] tel:[phone] [facility] No Information Aug-0 1-200 8 Hodge OD Patricio. [address] , [address], [place], [facility], . tel:[phone] [facility], [address], [place], [place], [address], tel:[phone] [facility] No Information Sep-2 5-200 8 Hodge OD Patricio. [address] , [address], [place], [facility], . tel:[phone] [facility], [address], [place], [place], [address], tel:[phone] [facility] No Information Irp-1 9-200 8 Doisy Edalejandro. [address], [place], [facility], [place]. tel:[phone] [facility], [address], [place], [place], [address], [place] tel:[phone] [facility] No Information July-2 3-200 7 Doisy Edalejandro. [address], [place], [place], [facility], . tel:[phone] Family History Family Member Type Diagnosis Age At Onset No Information Payers Payer name Insurance type Covered constitution party ID Authoriza tion(s) No Information Social History Type Description Quantity Date Captured Comments Sex Female Smoking Status No Information Chief Complaint And Reason For Visit No Information Reason For Referral Reason For Referral No Information History Of Present Illness Encounter Date Complaint History Of Prese nt Illness No Information Functional Status Date Functional Assessmen t No Information Instructions Date Instruction Additional Infor mation No Information Assessments Type Assessment Date No Information Patient Care Teams Name Effective Dates (start - stop) Status Members No Information
--- OUTSIDE RECORDS SUMMARY | 2019-01-06 08:50 | XMS_ITS | Continuity of Care Document ---
Author Organization [facility] Address [address] [place] [address] Phone Care Team Providers Care Lay Out Drafter Name Role Phone Breana ORTA, [facility] Unavailable Unavaila ble Allergies, Adverse Reactions, Alerts Substance Reaction Status Criticality codeine Active No Information Medications Medication Instructions Dosage Effective Dates (start - stop) Status Comments aspirin 81 mg chewable tablet chew 1 tablet by oral route every day 81 MG - Active Calcium 500 500 mg calcium (1,250 mg) tablet - Active dorzolamide 2 % eye drops 1 gtt BID OD only - Active Fish Oil 1,000 mg (120 mg-180 mg) capsule - Active latanoprost 0.005 % eye drops 1 gtt QHS OD only - Active Restasis 0.05 % eye drops in a dropperette instill 1 drop by ophthalmic route every 12 hours into affected eye(s) 1.00 drop - Active Vitamin D3 1,000 unit capsule - Active Procedures Procedure Date OFFICE/OUTPATIENT VISIT, [facility] Advance Directives Directive Yes / No Effective Date File Name No Information Encounters Encounter Description Practice Location Reason(s) For Visit Diagnoses Date Provider Providers Copied on Encounter OFFICE/OUTPA TIENT VISIT, [facility], [address], [place], [place], [id number], [place] tel:[phone] [facility] pain (chief complaint) Status post LASIK surgery of both eyesPresence of pseudophakiaBi lateral keratoconjunct ivitis sicca, not specified as Sjogren'sBleph aritis of both upper and lower eyelidPrimary open angle glaucoma (POAG) of both eyes, mild stage Oct- 201 9 Breana Hurdhil. [address], [place], [place], [address], [place]. tel:[phone] Referring Provider: Chris Chairez senthil, [address], [place], [address] . tel:[phone] Family History Family Member Type Diagnosis Age At Onset No Information Payers Payer name Insurance type Covered democrat ID Authoriza tion(s) [employer] [employer] [place] MB [id number] [facility] [id number] Social History Type Description Quantity Date Captured Comments Alcohol Use Details Unknown Caffeine Use Details Unknown Tobacco Use Status No Information Smoking Status Former smoker Non-Smoking Tobacco Use Details : No Details Available : No Details Available Sex Female Chief Complaint And Reason For Visit From encounter dated '01/06/2019 13:50'. pain (chief complaint). Description: The 68 year old female presents for evaluation of dry eyes OU.Patient has been using Restasis BID OU. Patient states that it hasn't really been helping. Her eyes are red all the time, and her OS hurts, sometimes it's worse than others, and reading seems to make it really bad. She's had LASIK OU and enhancement OS plus cataract surgery OU. Her eye doctor sent her to a cornea specialist at [facility] her recommended Fish Oil and warm compresses and that didn't help. She thinks she's had Bigg punctal plugs but thinks they fell out shortly after insertion a long time ago.TOTS:304/290 Reason For Referral Reason For Referral No Information History Of Present Illness Encounter Date Complaint History Of Prese nt Illness pain The 68 year old female presents for evaluation of dry eyes OU. Patient has been using Restasis BID OU. Patient states that it hasn't really been helping. Her eyes are red all the time, and her OS hurts, sometimes it's worse than others, and reading seems to make it really bad. She's had LASIK OU and enhancement OS plus cataract surgery OU. Her eye doctor sent her to a cornea specialist at [facility] her recommended Fish Oil and warm compresses and that didn't help. She thinks she's had Armour punctal plugs but thinks they fell out shortly after insertion a long time ago.TOTS:304/290 Functional Status Date Functional Assessmen t No Information Instructions Date Instruction Additional Infor glendy RTO prn Related to Prese nce of pseudophakia Impression/Plan Related to Prese nce of pseudophakia Impression/Plan Related to Prima ry open angle glaucoma (POAG) of both eyes, mild stage Impression/Plan Related to Bleph aritis of both upper and lower eyelid Impression/Plan Related to Bilat eral keratoconjunctivitis sicca, not specified as Sjogren's Impression/Plan Related to Statu s post LASIK surgery of both eyes Assessments Type Assessment Date assessment Status post LASIK surgery of bot h eyes impression Status post LASIK acosta rgery of both eyes: Z98.890. Done by Dr. Bar 20+ yrs ago. 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
--- OUTSIDE RECORDS SUMMARY | 2019-11-08 05:12 | XMS_ITS | Continuity of Care Document ---
Author Organization [facility] Address [address] [address] Phone Care Team Providers Care Front Office Administrator Name Role Phone Heriberto ORTA, Becca Unavailable Unavailable Allergies, Adverse Reactions, Alerts Substance Reaction Status Criticality codeine Nausea Active No Information Medications Medication Instructions Dosage Effective Dates (start - stop) Status Comments aspirin 81 mg tablet,delayed release take 1 tablet by oral route every day 81 MG - Active Fish Oil 1,000 mg (120 mg-180 mg) capsule - Active Restasis 0.05 % eye drops in a dropperette instill 1 drop by ophthalmic route every 12 hours into affected eye(s) 1.00 drop - Active latanoprost 0.005 % eye drops instill 1 drop by ophthalmic route every day into affected eye(s) in the evening 1.00 drop - Active dorzolamide 2 % eye drops instill 1 drop by ophthalmic route 3 times every day into affected eye(s) 1.00 drop - Active Procedures Procedure Date Est (Level 4) OFFICE/OUTPATIENT VISIT Au Est (Level 2) OFFICE/OUTPATIENT VISIT PATCH TESTS Est (Level 3) OFFICE/OUTPATIENT VISIT New (Level 3) OFFICE/OUTPATIENT VISIT Advance Directives Directive Yes / No Effective Date File Name No Information Encounters Encounter Description Practice Location Reason(s) For Visit Diagnoses Date Provider Providers Copied on Encounter [facility], [address] [address], [place], [place], [id number], tel:[phone] [facility] No Information 0 Heriberto Hudson. [address] [place] [address] , [place], [place], [id number] , [place]. tel: [phone] Referring Provider: Jaky Mora, [address], [place], [address]. tel:[phone] Est (Level 4) OFFICE/OUTPA TIENT VISIT [facility], [address] [place] [address], [id number], [place] tel:[phone] [place] - AAFAC rash (chief complaint) Contact dermatitisPruritu s 0 Tri LOLLYPOP MACHINE OPERATOR Lorenzo. [address], [facility] [address], [place], [address], [place]. tel: [phone] Referring Provider: Jaky Mora, [address], [place], [address]. tel:[phone] Est (Level 2) OFFICE/OUTPA TIENT VISIT [facility], [address] [place] [address], [id number], [place] tel:[phone] [place] - AAFAC rash (chief complaint) Contact dermatitis 0 Tri LOLLYPOP MACHINE OPERATOR Lorenzo. [address], [facility] [address], [place], [address], [place]. tel: [phone] Referring Provider: Jaky Mora, [address], [place], [address]. tel:[phone] Est (Level 3) OFFICE/OUTPA TIENT VISIT [facility], [address] [place] [address], [id number], [place] tel:[phone] [place] - AAFAC rash (chief complaint) Contact dermatitisAllergi c contact dermatitis due to metals 0 Arsenio Pineda. [address], [place], [address], [place]. tel: [phone] Referring Provider: Jaky Mora, [address], [place], [address]. tel:[phone] New (Level 3) OFFICE/OUTPA TIENT VISIT [facility], [address] [facility] [address], [place], [place], [id number], [place] tel:[phone] [facility] pruritus (chief complaint) Dermatitis, unspecifiedPrurit usAllergic contact dermatitis due to metals 0 Arsenio Pineda. [address], [place], [address], [place]. tel:[phone] Referring Provider: Jaky Mora, [address], [place], [address]. tel:[phone] Family History Family Member Type Diagnosis Age At Onset No Information Payers Payer name Insurance type Covered republican ID Authoriza tialin(s) Medicare [facility] [id number] [facility] [id number] Social History Type Description Quantity Date Captured Comments Sex Female Smoking Status No Information Chief Complaint And Reason For Visit No Information Reason For Referral Reason For Referral No Information History Of Present Illness Encounter Date Complaint History Of Prese nt Illness rash LV: 11/02/19 for initial patch test readingI had the pleasure of seeing Gabby Gong, a 68-year-old female with past medical history significant for dry eye syndrome and glaucoma who returns today regarding her 1-year history of localized pruritus. She was alone for today's visit.She reports pruritus localized to both forearms. Sometimes small non-urticarial lesions appear, which she will scratch or rub excessively to the point of blood blisters forming on her forearms, which takes several days to resolve. She denies any blistering, vesicles or desquamation. She initially consulted with Dr. Mora in December 2018 and eczema vs. contact dermatitis suspected. She did not improve with topical steroids and switching to hypoallergenic personal care products. She then underwent patch testing in May 2019 using the True TEST panel, which was positive to nickel sulfate (2+) and gold sodium thiosulfate (1+). She was wearing costume jewelry on her arms at the time but continues to do so as she only wears it 3 days per week. She was last seen by Dr. Mora on 09/28/19, during which time the patient was concerned about underlying food allergies. Of note, she was not avoiding nickel. Dr. Mora checked labs on 10/06/19 which showed normal CBC/diff, UxT=598 (high) and respiratory allergen panel positive to cockroach (0.85), dust mite P (0.63), dust mite F (0.61), maple (0.11), cedar (0.56), cat (0.22) and Faroese thistle (0.19). Food allergen panel was not done. She is clinically sensitive to cats with nasal and ocular symptoms but denies seasonal allergy issues. She denies a history of environmental allergies, asthma, eczema, food allergies, medication allergies, urticaria/angioedema, recurrent infections, latex allergy or stinging insect hypersensitivity.She currently has a rash on her right wrist that developed 10/28-10/29 and has improved significantly since 10/30. She reports feeling that today her left wrist is itching, like before a rash appears.Recent labwork through her PCP done on 09/28/19 notable for normal CMP and vitamin D level. She presents today for her final reading of allergEAZE NAC-80 panel, and to review her results. She denies systemic corticosteroid use in over 4 weeks.PMHx: right eye glaucoma, asymptomatic TIAPSHx: hysterectomy, ganglion cyst excisions on hand/wristsFHx: no atopySHx: Lives in [place] with . House built 1968, has lived there 41 years. No pets. Central A/C, gas heating. Carpet in [place]. No basement, no mold. Quit smoking 1998, previous 1.5 ppd x 20 years, occ. EtOH. Works 3 days/week at [employer]. rash LV: 10/31/[address] Cesar for Patch placementI had the pleasure of seeing Gabby Gong, a 68-year-old female with past medical history significant for dry eye syndrome and glaucoma who returns today in consultation with Dr. Mora (Dermatology) regarding her 1-year history of localized pruritus. She was alone for today's visit.She reports pruritus localized to both forearms. Sometimes small non-urticarial lesions appear, which she will scratch or rub excessively to the point of blood blisters forming on her forearms, which takes several days to resolve. She denies any blistering, vesicles or desquamation. She initially consulted with Dr. Mora in December 2018 and eczema vs. contact dermatitis suspected. She did not improve with topical steroids and switching to hypoallergenic personal care products. She then underwent patch testing in May 2019 using the True TEST panel, which was positive to nickel sulfate (2+) and gold sodium thiosulfate (1+). She was wearing costume jewelry on her arms at the time but continues to do so as she only wears it 3 days per week. She was last seen by Dr. Mora on 09/28/19, during which time the patient was concerned about underlying food allergies. Of note, she was not avoiding nickel. Dr. Mora checked labs on 10/06/19 which showed normal CBC/diff, RuH=479 (high) and respiratory allergen panel positive to cockroach (0.85), dust mite P (0.63), dust mite F (0.61), maple (0.11), cedar (0.56), cat (0.22) and Faroese thistle (0.19). Food allergen panel was not done. She is clinically sensitive to cats with nasal and ocular symptoms but denies seasonal allergy issues. She denies a history of environmental allergies, asthma, eczema, food allergies, medication allergies, urticaria/angioedema, recurrent infections, latex allergy or stinging insect hypersensitivity.She currently has a rash on her right wrist that developed over the weekend and is improving.Recent labwork through her PCP done on 09/28/19 notable for normal CMP and vitamin D level. She presents today for removal of allergen patches, allergEAZE NAC-80 panel, and her initial results. She denies systemic corticosteroid use in over 4 weeks.PMHx: right eye glaucoma, asymptomatic TIAPSHx: hysterectomy, ganglion cyst excisions on hand/wristsFHx: no atopySHx: Lives in [place] with . House built 1968, has lived there 41 years. No pets. Central A/C, gas heating. [place]pet in [place]. No basement, no mold. Quit smoking 1998, previous 1.5 ppd x 20 years, occ. EtOH. Works 3 days/week at [employer]. rash LV: 10/19/19I had the pleasure of seeing Gabby Gong, a 68-year-old female with past medical history significant for dry eye syndrome and glaucoma who returns today in consultation with Dr. Mora (Dermatology) regarding her 1-year history of localized pruritus. She was alone for today's visit.She reports pruritus localized to both forearms. Sometimes small non-urticarial lesions appear, which she will scratch or rub excessively to the point of blood blisters forming on her forearms, which takes several days to resolve. She denies any blistering, vesicles or desquamation. She initially consulted with Dr. Mora in December 2018 and eczema vs. contact dermatitis suspected. She did not improve with topical steroids and switching to hypoallergenic personal care products. She then underwent patch testing in May 2019 using the True TEST panel, which was positive to nickel sulfate (2+) and gold sodium thiosulfate (1+). She was wearing costume jewelry on her arms at the time but continues to do so as she only wears it 3 days per week. She was last seen by Dr. Mora on 09/28/19, during which time the patient was concerned about underlying food allergies. Of note, she was not avoiding nickel. Dr. Mora checked labs on 10/06/19 which showed normal CBC/diff, BxL=099 (high) and respiratory allergen panel positive to cockroach (0.85), dust mite P (0.63), dust mite F (0.61), maple (0.11), cedar (0.56), cat (0.22) and Faroese thistle (0.19). Food allergen panel was not done. She is clinically sensitive to cats with nasal and ocular symptoms but denies seasonal allergy issues. She denies a history of environmental allergies, asthma, eczema, food allergies, medication allergies, urticaria/angioedema, recurrent infections, latex allergy or stinging insect hypersensitivity.She currently has a rash on her right wrist that developed over the weekend. She denies wearing any jewelry on that wrist, last time at work was on 10/26/19.Recent labwork through her PCP done on 09/28/19 notable for normal CMP and vitamin D level. She request allergen patch testing today using the allergEAZE NAC-80 panel. She denies systemic corticosteroid use in over 4 weeks.PMHx: right eye glaucoma, asymptomatic TIAPSHx: hysterectomy, ganglion cyst excisions on hand/wristsFHx: no atopySHx: Lives in [place] with . House built 1968, has lived there 41 years. No pets. Central A/C, gas heating. [place]pet in [place]. No basement, no mold. Quit smoking 1998, previous 1.5 ppd x 20 years, occ. EtOH. Works 3 days/week at [employer]. pruritus I had the pleasu re of seeing Gabby Gong, a 68-year-old female with past medical history significant for dry eye syndrome and glaucoma who presents today at the request of Dr. Mora (Dermatology) in consultation regarding her 1-year history of localized pruritus. She was alone for today's visit.She reports pruritus localized to both forearms. Sometimes small non-urticarial lesions appear, which she will scratch or rub excessively to the point of blood blisters forming on her forearms, which takes several days to resolve. She denies any blistering, vesicles or desquamation. She initially consulted with Dr. Mora in December 2018 and eczema vs. contact dermatitis suspected. She did not improve with topical steroids and switching to hypoallergenic personal care products. She then underwent patch testing in May 2019 using the True TEST panel, which was positive to nickel sulfate (2+) and gold sodium thiosulfate (1+). She was wearing costume jewelry on her arms at the time but continues to do so as she only wears it 3 days per week. She was last seen by Dr. Mora on 09/28/19, during which time the patient was concerned about underlying food allergies. Of note, she was not avoiding nickel. Dr. Mora checked labs on 10/06/19 which showed normal CBC/diff, RhM=647 (high) and respiratory allergen panel positive to cockroach (0.85), dust mite P (0.63), dust mite F (0.61), maple (0.11), cedar (0.56), cat (0.22) and Faroese thistle (0.19). Food allergen panel was not done. She is clinically sensitive to cats with nasal and ocular symptoms but denies seasonal allergy issues. She denies a history of environmental allergies, asthma, eczema, food allergies, medication allergies, urticaria/angioedema, recurrent infections, latex allergy or stinging insect hypersensitivity.PMHx: right eye glaucoma, asymptomatic TIAPSHx: hysterectomy, ganglion cyst excisions on hand/wristsFHx: no atopySHx: Lives in [place] with . House built 1968, has lived there 41 years. No pets. Central A/C, gas heating. [place]pet in [place]. No basement, no mold. Quit smoking 1998, previous 1.5 ppd x 20 years, occ. EtOH. Works 3 days/week at [employer].REcent LFTs normal through PCP, CBC/diff normal through [facility] Functional Status Date Functional Assessmen t No Information Instructions Date Instruction Additional Infor mation No Information Assessments Type Assessment Date No Information Patient Care Teams Name Effective Dates (start - stop) Status Members No Information
--- NOTE | ~2024-11-14 | MM_ITS ---
EXAMINATION: MM screening marika BI w raymundo HISTORY: Screening TECHNIQUE: Craniocaudal and mediolateral oblique 3-D tomosynthesis images were obtained and synthetic 2-D images were generated. CAD analysis was submitted and interpreted. COMPARISON: Comparison to multiple prior studies sequentially, with oldest reviewed study dated 10/27/2017. BREAST PARENCHYMAL COMPOSITION: There are scattered areas of fibroglandular density. FINDINGS: There is no evidence of suspicious mass, calcification, or architectural distortion to suggest malignancy in either breast. IMPRESSION: 1. No mammographic evidence of malignancy. 2. Recommend routine screening mammography in one year. BI-RADS Category 1: Negative Reviewed, dictated and finalized at location B.
--- NOTE | ~2024-11-14 | DEXA_ITS ---
Bone Density Report Name: TORI PHILIP Age: 74 Sex: Female Ethnicity: White Date of : 1950 Indication: osteopenia; hysterectomy; Referring Provider: RICH, MICHAEL Vyas Study: Bone densitometry was performed. Exam Date: November 14, 2024 Accession number: [id number] Bone Density: Region BMD T-score Z-score Classification AP Spine(L1-L4) 0.925 -1.1 1.1 Osteopenia Femoral Neck (Left) 0.688 -1.5 0.5 Osteopenia Total Hip (Left) 0.987 0.4 2.0 Normal Femoral Neck (Right) 0.742 -1.0 0.9 Normal Total Hip (Right) 0.963 0.2 1.8 Normal Total Hip Mean 0.975 0.3 1.9 Normal World Health Organization criteria for BMD impression classify patients as: Normal (T-score at or above -1.0), Osteopenia (T-score between -1.0 and -2.5), or Osteoporosis (T-score at or below -2.5). 10-year Fracture Risk(1): Major Osteoporotic Fracture 10% Hip Fracture 1.6% Reported Risk Factors: [place] (), Neck BMD=0.688, BMI=25.2 (1) FRAX(R) Version 3.08. Fracture probability calculated for an untreated patient. Fracture probability may be lower if the patient has received treatment. Previous Exams: Region Exam Age BMD T-score BMD Change BMD Change Date g/cm2 vs Baseline vs Previous AP Spine (L1-L4) 11/14/2024 74 0.925 -1.1 -0.005 (-0.6%) -0.005 (-0.6%) 06/12/2022 71 0.930 -1.1 Total Hip(Left) 11/14/2024 74 0.987 0.4 0.013 (1.3%)# 0.013 (1.3%)# 06/12/2022 71 0.974 0.3 Total Hip(Right) 11/14/2024 74 0.963 0.2 0.007 (0.7%)# 0.007 (0.7%)# 06/12/2022 71 0.956 0.1 *Denotes significance at 95% confidence level, LSC for AP Spine = 0.022 g/cm2, LSC for Total Hip = 0.027 g/cm2 # Denotes dissimilar scan types or analysis methods Clinical Information Provided by Patient: Has used the following medications: Vitamin D, Calcium Has the following medical conditions: Hysterectomy Patient maximum height was 65.0 Menopause Age: 46 Drinks caffeinated beverages Onset of menses at age 12 Number of children 0 Impression: The patient has low bone mass, based on the Left Femoral Neck T-score. The patient has an estimated ten-year risk of hip fracture of 1.6% and an estimated ten-year risk of major fracture of 10%, based on the WHO FRAX algorithm. No significant bone loss was observed. Discussion: BONE DENSITY IS LOW AT ONE OR MORE SKELETAL SITES. This patient's lowest T-score is low at one or more skeletal sites. It meets the World Health Organization's (WHO) criteria for ?low bone mass? (T-score between -1.0 and -2.5). The patient's 10-year risk of fracture as calculated by FRAX is less than the threshold where pharmacological therapy is recommended by the National Osteoporosis Foundation (NOF). However, all treatment decisions require clinical judgment and consideration of individual patient factors, including patient preferences, comorbidities, previous drug use, risk factors not captured in the FRAX model (e.g., frailty, falls, vitamin D deficiency, increased bone turnover, interval significant decline in bone density) and possible under or overestimation of fracture risk by FRAX. The patient should follow a healthful lifestyle (good nutrition with adequate calcium and vitamin D, and appropriate weight-bearing exercise). Follow-Up: Consider repeating this study in 2 to 3 years to reassess this patient's status, or sooner if there is some new clinical indication. Reported by: DOROTA on 11/14/2024 11:51:00 AM. Reviewed, dictated and finalized at location A.
--- OUTSIDE RECORDS SUMMARY | 2024-11-14 11:51 | XMS_ITS | Clinical Summary ---
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
--- OUTSIDE RECORDS SUMMARY | 2024-11-14 11:51 | XMS_ITS | Clinical Summary ---
Author Organization [facility] Address [address] [place] [address] Care Team Providers Care Slitter Operator Name Role Phone Unavailable Primary Care Provider Unavailabl e Source Comments [facility]non-owned Affiliates and Associated Physician Practices is amultiple site organization consisting of ambulatory clinics and hospital sitesin [place], [place], [place] and [place]. This disclosure is being madepursuant to the Care Everywhere program and may not contain all information available regarding this patient. Last updated 17.[facility] 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
--- OUTSIDE RECORDS SUMMARY | 2024-11-14 11:51 | XMS_ITS | Encounter Summary ---
Author Organization [facility] Address [address] [facility] [place] [address] Care Team Providers Care Director Television Name Role Phone Unavailable Primary Care Provider Unavailabl e Encounter Details Date Type Department Care Team (Late st Contact Info) Description 12/23/2018 Lab Requisition [facility] Lab [address] [facility] [place] [id number] Jaky Mora MD [address] [facility] [address] [place] [address] Social History Tobacco Use Types Packs/Day Years Used Date Smoking Tobacco: Never Assessed Comments Unknown Sex and Gender Information Value Date Recorded Sex Assigned at Not on file 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[employer] Gender Identity Not on file Sexual Orientation Not on file documented as of this encounter Plan of Treatment Not on file documented as of this encounter Procedures Procedure Name Priority Date/Time Associated Diagnosis Comments DERMATOPATHOLOGY Routine 12/22/2018 12:0 0 AM CDT documented in this encounter Results * DERMATOPATHOLOGY (12/22/2018 12:00 AM CDT) Case Report Dermatopathology Report Case: [id number] Authorizing Provider: Jaky Mora MD Collected: 12/22/2018 12:00 AM Ordering Location: [facility] Received: 12/23/2018 08:11 AM Pathologist: Juan Huynh MD Specimen: Skin, left forearm 9 2:38 PM CDT DERMATOPATHOLOGY LABORATORY Final Diagnosis Specimen A. SKIN, left forearm: SUPERFICIAL AND DEEP PERIVASCULAR LYMPHOCYTIC INFILTRATE WITH EOSINOPHILS (T63.484A) (see microscopic description and comment) 9 2:38 PM CDT DERMATOPATHOLOGY LABORATORY at 1438 CDT Clinical History ACD vs CTD vs PSO vs tinea vs fixed drug. Springer edematous scaly plaques AL forearm and neck. 2:38 PM CDT DERMATOPATHOLOGY LABORATORY Gross Description Specimen A: Received is one formalin filled container labeled with the patient's name and designated left forearm. The specimen consists of a punch measuring [id number], bisected. Jar 0. 2:38 PM CDT DERMATOPATHOLOGY [...] determined by the Dermatopathology Laboratory at [facility], directed by Dr. Sarah Huynh. These tests need not be, and therefore are not, approved by the [place] Food and Drug Administration. The tests are used for clinical purposes. Billing Codes Specimen Charges Stain Charges 12405 1 52494 1 2:38 PM CDT DERMATOPATHOLOGY LABORATORY Embedded Images 2:38 PM CDT DERMATOPATHOLOGY LABORATORY Pathology/Cytolog y TISSUE SPECIMEN FROM SKIN / Unknown 12/22/2018 12/23/2018 8:11 AM CDT us Jaky Mora MD LAB - PATHOLOGY/CYTOLOGY ORD ERABLES Final Result DERMATOPATHOLOGY LABORATORY [facility] - Department of Dermatology [address] [place] [address], 5th [place] [address], [facility] [phone] documented in this encounter Visit Diagnoses Not on filedocumented in this encounter
== END 2024-11-14 11:08 | disposition home or self-care (01) ==
PROVIDERS: PCP Nurse Practitioner Family; Visit Provider Nurse Practitioner
DX: Z12.31 Encounter for screening mammogram for malignant neoplasm of breast (principal); Z78.0 Asymptomatic menopausal state; M85.88 Other specified disorders of bone density and structure, other site; M85.852 Other specified disorders of bone density and structure, left thigh
CPT/HCPCS: 77063; 77067; 77080